=== PATIENT | female | born 1935 | race Caucasian/White ===

== ENCOUNTER 2017-06-12 22:36 | Emergency (ER) | payer MEDICARE ==
[~2017-06-12] VITALS: Ht 162.6 cm; Wt 60.1 kg
[~2017-06-12 22:36] MED LIST: ASPI81 PO; AZOR10TA2 PO; KLOR20TA6 PO; MOTI25CH PO; NORV10TA PO
[2017-06-12 22:44] VITALS: BP 194/83; PULSE 65; RESP 18; TEMP 97.8; O2SAT 97
[2017-06-12] MEDS ORDERED: VALS1TAB70 PO (23:07)
[2017-06-12 23:13] VITALS: BP 175/69
[2017-06-12 23:17] VITALS: BP 161/67; PULSE 62; RESP 16; O2SAT 97
[2017-06-12 23:20] LABS: AUTOMATED NEUTROPHIL # 4.8 TH/MM3 (1.8-7.7); BASOPHIL % 0.6 % (0.0-2.0); EOSINOPHIL # 0.1 TH/MM3 (0-0.4); EOSINOPHIL % 1.8 % (0.0-4.0); HEMATOCRIT 38.8 % (35.0-46.0); HEMO FLAGS DIFF FINAL; LYMPH % 33.2 % (9.0-44.0); LYMPHOCYTE # 2.7 TH/MM3 (1.0-4.8); MEAN CELL VOLUME 89.7 FL (80.0-100.0); MEAN CORPUSCULAR HEMOGLOBIN 30.6 PG (27.0-34.0); MEAN CORPUSCULAR HGB CONC 34.1 % (32.0-36.0); MONO % 5.2 % (0.0-8.0); NEUT % 59.2 % (16.0-70.0); PLATELET COUNT 146 TH/MM3 (150-450); RED BLOOD COUNT 4.33 MIL/MM3 (4.00-5.30); RED CELL DISTRIBUTION WIDTH 13.8 % (11.6-17.2)
[2017-06-12] MEDS ORDERED: ASPI81CH CHEW (23:26)
[2017-06-12] MEDS ORDERED: POTA20TA5 PO (23:26)
[2017-06-12] MEDS ORDERED: AMLO5TAB2 PO (23:26)
[2017-06-12 23:28] LABS: POTASSIUM 3.5 MEQ/L (3.5-5.1)
[2017-06-12 23:31] LABS: BICARBONATE 26.3 MEQ/L (21.0-32.0)
--- NOTE | 2017-06-12 23:33 | PD ---
HPI Chief Complaint: Hypertension Time Seen by Provider: 22:47 Travel History International Travel<30 days: No Contact w/Intl Traveler<30days: No Traveled to known affect area: No History of Present Illness HPI This 82-year-old female presents with complaint of high blood pressure. This lady has a history of hypertension. She also recently has been having troubles with dizziness and memory problems. She is seeing a neurologist and in fact saw him today. she doesn't recall what he told her. She recently had a change in her blood pressure medicine. She had been on amlodipine 10 mg daily and this was cut back to 5 mg daily. She takes this in the morning. She also takes valsartan. She initially told me she took it in the morning but later her sister says she's been taking it at night and thinks She might have missed it tonight. Patient does have complaint of dizziness. This is been going on for quite some time. This patient smokes cigarettes. She was diagnosed with urinary tract infection and I believe today and is on antibiotics PFSH Past Medical History Arthritis: Yes Asthma: No Cancer: Yes (UTERINE) Cardiovascular Problems: Yes (HTN) COPD: Yes (EMPHYSEMA) Cerebrovascular Accident: Yes (TIA) Endocrine: No Genitourinary: No Hypertension: Yes Musculoskeletal: No Neurologic: No Psychiatric: No Reproductive: No Respiratory: Yes (COPD) Migraines: No Pneumonia: Yes Seizures: No Menopausal: Yes : 2 Para: 2 Past Surgical History Abdominal Surgery: No Appendectomy: Yes Cardiac Surgery: No Cholecystectomy: Yes Ear Surgery: No Endocrine Surgery: No Eye Surgery: Yes (CATARACT AND LASER) Genitourinary Surgery: No Gynecologic Surgery: Yes Hysterectomy: Yes Oral Surgery: No Thoracic Surgery: No Other Surgery: Yes Social History Alcohol Use: No Tobacco Use: Yes (11/25 PPD) Substance Use: No Allergies-Medications (Allergen,Severity, Reaction): Coded Allergies: No Known Allergies (Verified , 06/12/17) Reported Meds & Prescriptions Reported Meds & Active Scripts Active Reported Valsartan 320 Mg Tab 320 Mg PO DAILY Norvasc (Amlodipine Besylate) 10 Mg Tab 10 Mg PO DAILY Meclizine Hcl (Meclizine HCl) 25 Mg Tab 25 Mg PO Q6HPRN DIZZINESS Aspirin 81 Mg Tab 81 Mg PO EVERY OTHER DAY K-Dur (Potassium Chloride) 20 Meq Tabcr 20 Meq PO DAILY Review of Systems General / Constitutional: No: Fever, Chills Eyes: No: Diploplia, Blurred Vision HENT: Positive: Vertigo, Lightheadedness, No: Neck Stiffness Cardiovascular: No: Chest Pain or Discomfort, Palpitations Respiratory: No: Cough, Shortness of Breath Gastrointestinal: No: Nausea, Vomiting Genitourinary: No: Urgency Musculoskeletal: No: Myalgias, Arthralgias Skin: No Itching Neurologic: Positive: Dizziness, No: Syncope, Focal Abnormalities Endocrine: No: Cold Intolerance Hematologic/Lymphatic: No: Easy Bruising Physical Exam Narrative GENERAL: Thin female SKIN: Focused skin assessment warm/dry. HEAD: Atraumatic. Normocephalic. EYES: Pupils equal and round. No scleral icterus. No injection or drainage. ENT: No nasal bleeding or discharge. Mucous membranes pink and moist. NECK: Trachea midline. No JVD. CARDIOVASCULAR: Regular rate and rhythm. No murmur appreciated. RESPIRATORY: No accessory muscle use. Clear to auscultation. Breath sounds equal bilaterally. GASTROINTESTINAL: Abdomen soft, non-tender, nondistended. Hepatic and splenic margins not palpable. MUSCULOSKELETAL: No obvious deformities. No clubbing. No cyanosis. No edema. NEUROLOGICAL: Awake and alert. No obvious cranial nerve deficits. Motor grossly within normal limits. Normal speech. PSYCHIATRIC: Appropriate mood and affect; insight and judgment normal. Patient is oriented Data Data Last Documented VS Vital Signs Date Time Temp Pulse Resp B/P Pulse Ox O2 Delivery O2 Flow Rate FiO2 06/12/17 22:44 97.8 65 18 194/83 97 MDM Medical Decision Making Medical Screen Exam Complete: Yes Emergency Medical Condition: Yes Medical Record Reviewed: Yes Differential Diagnosis Differential includes essential hypertension, left-sided imbalance, noncompliance Narrative Course Patient does appear forgetful though she is oriented. I have told her she needs to use a pill box so she knows that she has taken her medication or not. The benefits of stopping smoking have been discussed with the patient. Her blood pressure has come down without medications. I have given her check her lab work. I'm concerned that she is taking a potassium supplement. In the past she was on a diuretic though I don't believe she is on one now Diagnosis Primary Impression: Hypertension Qualified Code: I10 - Essential hypertension Av Cleveland MD Jun 12, 2017 23:33
[2017-06-12 23:37] VITALS: BP 149/64
== END 2017-06-12 23:45 | disposition home or self-care (01) ==
LOC: PHED 22:36
DX: I10 Essential (primary) hypertension (principal); J43.9 Emphysema, unspecified; Z86.73 Personal history of transient ischemic attack (TIA), and cerebral infarction without residual deficits; F17.210 Nicotine dependence, cigarettes, uncomplicated
CPT/HCPCS: 80048; 85025; 99283